=== PATIENT | male | born 1995 | race Caucasian/White ===

== ENCOUNTER 2022-07-30 18:55 | Emergency (ER) | payer BC ==
[~2022-07-30] VITALS: Ht 180.3 cm; Wt 113.6 kg
[2022-07-30] MEDS ORDERED: CEPHALEXIN500 M1 PO (19:40)
[2022-07-30 20:04] VITALS: BP 119/86
== END 2022-07-30 20:05 | disposition home or self-care (01) ==
LOC: EDSEX 18:55 → ED 18:55
DX: L01.00 Impetigo, unspecified (principal)